=== PATIENT | female | born 1940 | race African-American/Black ===

== ENCOUNTER 2016-11-01 20:32 | Emergency (ER) | payer MEDICARE ==
[2016-11-01] MEDS ORDERED: NS 0.9% 1000 ML* 1,000 ML IV ONE (20:37)
[2016-11-01 21:00] LABS: Hematocrit 39 % (35-47); Hemoglobin 13.4 g/dl (12.0-16.0); Mean Corpuscular HGB Conc 34 g/dl (31-36); Mean Corpuscular Hemoglobin 28 pg (27-31); Mean Corpuscular Volume 84 fL (80-97); Mean Platelet Volume 8 um3 (7.4-10.4); Red Blood Count 4.71 10^6/ul (4.0-5.4); Red Cell Distribution Width 13 % (10.5-15); White Blood Count 10.1 10^3/ul (3.5-10.8)
[2016-11-01 21:12] LABS: Albumin 4.2 g/dL (3.2-5.2); BUN/Creatinine Ratio 22.5 (8-20); EGFR African American 79.3 (>60); EGFR Non-African American 61.7 (>60); Globulin 3.2 g/dL (2-4); Magnesium 2.2 mg/dL (1.9-2.7); Potassium 3.7 mmol/L (3.5-5.0); Total Bilirubin 0.3 mg/dL (0.2-1.0); Total Protein 7.4 g/dL (6.4-8.9)
[2016-11-01 21:14] LABS: Troponin I 0.01 ng/mL (<0.04)
--- NOTE | 2016-11-01 21:24 | ED ---
Johnson Garcia Matthew, scribed for Wilfredo Andrade MD on 11/01/16 at 2049 . Dizziness - HPI Summary HPI Summary: A 76 y/o female presents to the ED with dizziness since hours ago. She was gardening all day today and states she did not eat properly. She only had a smoothie, grapes, and a cup of coffee for breakfast and minimal water throughout the day. Associated symptoms include slow to respond and chest pain in the EMS described as tightness, which lasted for 2 minutes and was rated 9/ 10 in severity. The pain has since resolved. - History Of Current Complaint Stated Complaint: DIZZINESS Hx Obtained From: Patient Onset/Duration: Still Present Timing: Constant Severity Initially: Moderate Severity Currently: Moderate Character: Lightheaded, Dizzy Associated Signs And Symptoms: Positive: Chest Pain - described as tightness and has since resolved, Other: - slow to respond PMH/Surg Hx/FS Hx/Imm Hx Cardiovascular History: Reports: Hx Hypertension Respiratory History: Reports: Hx Asthma - Family History Family History: FHx of vascular disease and cancer - Social History Occupation: Retired Alcohol Use: None Hx Substance Use: No Substance Use Type: Reports: None Review of Systems Constitutional: Negative Eyes: Negative ENT: Negative Positive: Chest Pain - since resolved Respiratory: Negative Gastrointestinal: Negative Genitourinary: Negative Musculoskeletal: Negative Skin: Negative Neurological: Other - Dizziness; Slow to respond Psychological: Normal All Other Systems Reviewed And Are Negative: Yes Physical Exam Triage Information Reviewed: Yes Vital Signs On Initial Exam: Temp Pulse Resp BP Pulse Ox 98.7 F 78 16 158/72 92 11/01/16 20:54 11/01/16 20:54 11/01/16 20:54 11/01/16 20:54 11/01/16 20:54 Vital Signs Reviewed: Yes Appearance: Positive: Well-Appearing, No Pain Distress Skin: Positive: Warm, Dry Head/Face: Positive: Normal Head/Face Inspection Eyes: Positive: EOMI, RENALDO ENT: Positive: Pharynx normal, Other Neck: Positive: Supple Respiratory/Lung Sounds: Positive: Breath Sounds Present Cardiovascular: Positive: Normal, RRR Abdomen Description: Positive: Soft. Negative: CVA Tenderness (R), CVA Tenderness (L), Distended, Guarding Bowel Sounds: Positive: Present Musculoskeletal: Positive: Strength/ROM Intact Neurological: Positive: Sensory/Motor Intact Psychiatric: Positive: Affect/Mood Appropriate Diagnostics - Vital Signs Vital Signs Temp Pulse Resp BP Pulse Ox 11/01/16 20:54 98.7 F 78 16 158/72 92 11/01/16 20:52 98.7 F 81 16 158/72 92 - Laboratory Lab Results: Lab Results 11/01/16 11/01/16 11/01/16 Range/Units 20:45 20:45 20:45 WBC 10.1 (3.5-10.8) 10^3/ul RBC 4.71 (4.0-5.4) 10^6/ul Hgb 13.4 (12.0-16.0) g/dl Hct 39 (35-47) % MCV 84 (80-97) fL MCH 28 (27-31) pg MCHC 34 (31-36) g/dl RDW 13 (10.5-15) % Plt Count 221 (150-450) 10^3/ul MPV 8 (7.4-10.4) um3 Neut % (Auto) 62.1 (38-83) % Lymph % (Auto) 27.5 (25-47) % Gaston % (Auto) 6.7 (1-9) % Eos % (Auto) 3.1 (0-6) % Baso % (Auto) 0.6 (0-2) % Absolute Neuts (auto) 6.3 (1.5-7.7) 10^3/ul Absolute Lymphs (auto) 2.8 (1.0-4.8) 10^3/ul Absolute Monos (auto) 0.7 (0-0.8) 10^3/ul Absolute Eos (auto) 0.3 (0-0.6) 10^3/ul Absolute Basos (auto) 0.1 (0-0.2) 10^3/ul Absolute Nucleated RBC 0 10^3/ul Nucleated RBC % 0 Sodium 137 (133-145) mmol/L Potassium 3.7 (3.5-5.0) mmol/L Chloride 103 (101-111) mmol/L Carbon Dioxide 26 (22-32) mmol/L Anion Gap 8 (2-11) mmol/L BUN 20 (6-24) mg/dL Creatinine 0.89 (0.51-0.95) mg/dL Est GFR ( Amer) 79.3 (>60) Est GFR (Non-Af Amer) 61.7 (>60) BUN/Creatinine Ratio 22.5 H (8-20) Glucose 126 H (70-100) mg/dL Lactic Acid 1.0 (0.5-2.0) mmol/L Calcium 10.0 (8.6-10.3) mg/dL Magnesium 2.2 (1.9-2.7) mg/dL Total Bilirubin 0.30 (0.2-1.0) mg/dL AST 16 (13-39) U/L ALT 16 (7-52) U/L Alkaline Phosphatase 63 (34-104) U/L Troponin I 0.01 (<0.04) ng/mL Total Protein 7.4 (6.4-8.9) g/dL Albumin 4.2 (3.2-5.2) g/dL Globulin 3.2 (2-4) g/dL Albumin/Globulin Ratio 1.3 (1-3) TSH Pending Result Diagrams: 11/01/16 20:45 11/01/16 20:45 Lab Statement: Any lab studies that have been ordered have been reviewed, and results considered in the medical decision making process. - EKG 21:35 Cardiac Rate: NL - 70 bpm EKG Rhythm: Sinus Rhythm EKG Interpretation: Non-specific T abnormalities Dizzy Course/Dx - Course Assessment/Plan: A 76 y/o female presents to the ED with dizziness since hours ago. She was gardening all day today and states she did not eat properly. She only had minimal water throughout the day. Per EMS, the patient had chest pain in the EMS the lasted for 2 minutes and has since resolved. Labs were reviewed and troponin was 0.01. EKG shows sinus rhythm at 70 bpm. The patient will be discharged home with PCP follow-up. - Diagnoses Provider Diagnoses: Dehydration Discharge - Discharge Plan Condition: Improved Disposition: HOME Patient Education Materials: Dehydration (ED) Referrals: Benny Murphy MD [Primary Care Provider] - 3 Days Additional Instructions: Please follow-up with your primary care physician in 3 days. The documentation as recorded by the Johnson bruce Matthew accurately reflects the service I personally performed and the decisions made by , Wilfredo Andrade MD.
[2016-11-01 21:42] LABS: TSH (Thyroid Stimulating Horm) 1.19 mcIU/mL (0.34-5.60)
[2016-11-01 21:44] VITALS: BP 148/67
== END 2016-11-01 21:43 | disposition home or self-care (01) ==
LOC: ED 20:32
DX: E86.0 Dehydration (principal); R07.9 Chest pain, unspecified; R42 Dizziness and giddiness
CPT/HCPCS: 36415; 80053; 83605; 83735; 84443; 84484; 85025; 93005; 96360; 99282

== ENCOUNTER 2019-09-09 17:04 | Emergency (ER) | payer MEDICARE ==
[2019-09-09 17:26] VITALS: BP 172/76
--- NOTE | 2019-09-09 17:41 | UC ---
Eye Complaint HPI - HPI Summary HPI Summary: has had cold symptoms now has bilateral eye redness and itching some mucous drainage, no fevers or issues with vision - History of Current Complaint Chief Complaint: UCEye Stated Complaint: EYES COMPLAINT Time Seen by Provider: 09/09/19 17:39 Hx Obtained From: Patient Hx Last Menstrual Period: pst menopause ?: No Onset/Duration: Sudden Onset, Lasting Days - 2, Still Present Timing: Constant Pain Intensity: 0 Pain Scale Used: 0-10 Numeric Location of Injury: Conjunctiva Character: Foreign Body Sensation Aggravating Factor(s): Nothing Associated Signs And Symptoms: Positive: Drainage (Purulent). Negative: Vision Impairment Bilateral - Allergies/Home Medications Allergies/Adverse Reactions: Allergies Allergy/AdvReac Type Severity Reaction Status Date / Time No Known Allergies Allergy Verified 09/09/19 17:27 Home Medications: Home Medications Hydrochlorothiazide TAB* [Hydrodiuril TAB*] 25 mg PO DAILY 09/09/19 [History Confirmed 09/09/19] Losartan TAB* [Cozaar TAB*] 25 mg PO DAILY 09/09/19 [History Confirmed 09/09/19] diPHENhydraMINE PO* [Benadryl PO 25 MG TAB*] 25 mg 09/09/19 [History] PMH/Surg Hx/FS Hx/Imm Hx Previously Healthy: No Cardiovascular History: Hypertension - Surgical History Surgical History: Yes Surgery Procedure, Year, and Place: LEFT KNEE REPLACED - Family History Known Family History: Positive: None Family History: FHx of vascular disease and cancer - Social History Occupation: Retired Lives: With Family Alcohol Use: None Substance Use Type: None Smoking Status (MU): Never Smoked Tobacco Review of Systems All Other Systems Reviewed And Are Negative: Yes Constitutional: Positive: Negative, Fever Eyes: Positive: Drainage, Eye Redness ENT: Positive: Negative Respiratory: Positive: Negative Cardiovascular: Positive: Negative Gastrointestinal: Positive: Negative Genitourinary: Positive: Negative Motor: Positive: Negative Neurovascular: Positive: Negative Musculoskeletal: Positive: Negative Neurological/Mental Status: Positive: Negative Psychological: Positive: Negative Is Patient Immunocompromised?: No Physical Exam Triage Information Reviewed: Yes Appearance: Well-Appearing, No Pain Distress, Well-Nourished Vital Signs: Initial Vital Signs Temp 98.2 F 09/09/19 17:19 Pulse 69 09/09/19 17:19 Resp 20 09/09/19 17:19 BP 172/76 09/09/19 17:19 Pulse Ox 98 09/09/19 17:19 Vital Signs Reviewed: Yes Eye Exam: Normal Eyes: Positive: Conjunctiva Inflamed, Discharge ENT Exam: Normal ENT: Positive: Normal ENT inspection, Hearing grossly normal, Pharynx normal, TMs normal, Uvula midline. Negative: Nasal congestion, Tonsillar swelling, Trismus, Muffled voice, Hoarse voice, Dental tenderness, Sinus tenderness Neck exam: Normal Neck: Positive: Supple, Nontender, No Lymphadenopathy Respiratory Exam: Normal Respiratory: Positive: Chest non-tender, No respiratory distress, No accessory muscle use Cardiovascular Exam: Normal Cardiovascular: Positive: RRR, Pulses Normal Musculoskeletal Exam: Normal Musculoskeletal: Positive: Strength Intact, ROM Intact, No Edema Neurological Exam: Normal Neurological: Positive: Alert, Muscle Tone Normal Psychological Exam: Normal Skin Exam: Normal Eye Complaint Course/Dx - Course Course Of Treatment: discussed likely jacobson of this being viral conjuctivitis vs bacterial with patient patient wish to treat with eye drops----will rx polytrim - Differential Dx/Diagnosis Provider Diagnosis: Conjunctivitis, Hypertension Discharge ED - Sign-Out/Discharge Documenting (check all that apply): Patient Departure All imaging exams completed and their final reports reviewed: No Studies - Discharge Plan Condition: Stable Disposition: HOME Patient Education Materials: How to Use Eye Drops (ED), Hypertension (ED), Conjunctivitis (ED) Referrals: Mayra Louis MD [Primary Care Provider] - 2 Weeks (for bp recheck) Fermín Cardona MD [Medical Doctor] - If Needed - Billing Disposition and Condition Condition: STABLE Disposition: Home
[2019-09-09] MEDS ORDERED: Polymyx/Trimethoprim OPTH* 10 ML BTL BOTH EYES ONE (17:53)
== END 2019-09-09 18:10 | disposition home or self-care (01) ==
LOC: UCEAST 17:04
DX: H10.9 Unspecified conjunctivitis (principal); I10 Essential (primary) hypertension
CPT/HCPCS: 99212; G0463

== ENCOUNTER 2021-01-01 07:31 | Observation (INO) ==
[~2021-01-01 07:31] MED LIST: Buffered Lidocaine 1% SYRIN 1 ml INTRADERM ONE; Dexamethasone IV 4 MG/ML VIAL 1 ml VIAL ONE; Lactated Ringers 1000 ml BAG 1,000 ML IV SCH; Lidocaine 1% MPF 5 ML VIAL ONE; ROPIVACAINE 5 MG/ML 30 ML BTL (0.5%) ONE
[2021-01-01] MEDS ORDERED: Dexamethasone IV 4 MG/ML VIAL 1 ml VIAL ONE (07:48)
[2021-01-01] MEDS ORDERED: ceFAZolin 2 GM PREMIX 2 GM/50 ML BAG ONE (07:52)
[2021-01-01] MEDS ORDERED: Ropivacaine 5 MG/ML 20 ML VIAL 0.5% (100 MG) ONE (08:50)
[2021-01-01] MEDS ORDERED: Midazolam 5 mg/5 ml VIAL 1 mg/ml 5 ml VIAL (5 mg) ONE (09:17)
[2021-01-01] MEDS ORDERED: Phenylephrine IV 10 MG/ML 1 ml VIAL ONE (10:30)
[2021-01-01] MEDS ORDERED: fentaNYL 100 mcg/2 ml 50 MCG/ML VIAL ONE (10:31)
[2021-01-01] MEDS ORDERED: Ondansetron 4 mg VIAL 2 MG/ML 2 ml VIAL ONE (11:11)
[2021-01-01] MEDS ORDERED: Lidocaine 2% PF 5 ML VIAL ONE (11:28)
[2021-01-01] MEDS ORDERED: Propofol 10 MG/ML 20 ML BTL ONE ×2 (11:41→12:44)
[2021-01-01] MEDS ORDERED: diPHENhydraMINE IV 50 MG/ML 1 ml VIAL (BENADRYL) IV PRN (12:13)
[2021-01-01] MEDS ORDERED: Morphine 2 MG/ML SYRINGE IV PRN (12:13)
[2021-01-01] MEDS ORDERED: Lactulose 30 ml UDC PO PRN (12:13)
[2021-01-01] MEDS ORDERED: Magnesium Hydroxide LIQ 30 ML UDC PO PRN (12:13)
[2021-01-01] MEDS ORDERED: Ondansetron 4 mg VIAL 2 MG/ML 2 ml VIAL IV PRN (12:13)
[2021-01-01] MEDS ORDERED: Ondansetron ODT 4 mg TAB 4 MG TAB PO PRN (12:13)
[2021-01-01] MEDS ORDERED: diPHENhydraMINE 25 mg TAB PO PRN (12:13)
[2021-01-01] MEDS ORDERED: Albuterol HFA INHALER 8 gm MDI INH PRN (12:18)
[2021-01-01] MEDS ORDERED: Lactated Ringers 1000 ml BAG 1,000 ML IV SCH (13:00)
[2021-01-01] MEDS ORDERED: oxyCODONE/Acetamin 5/325 mg TAB ONE (13:37)
[2021-01-01] MEDS ORDERED: Mometasone 220 MCG MDI INH PRN (14:27)
[2021-01-01] MEDS: oxyCODONE/Acetamin 5/325 mg TAB PO PRN (16:13)
[2021-01-01] MEDS: ceFAZolin 1 GM ADVAN 1 GM in NS 0.9% 50 ML 50 ML IVPB SCH (18:13)
[2021-01-01] MEDS: Magnesium Hydroxide LIQ 30 ML UDC PO SCH (20:00)
[2021-01-01] MEDS: CMCS: Cyclosporine 0.05% OPHTH (NF) 0.4 ML VIAL BOTH EYES SCH (20:01)
[2021-01-02] MEDS: oxyCODONE/Acetamin 5/325 mg TAB PO PRN ×2 (01:34→07:40)
[2021-01-02] MEDS: ceFAZolin 1 GM ADVAN 1 GM in NS 0.9% 50 ML 50 ML IVPB SCH ×2 (01:34→10:08)
[2021-01-02 05:55] LABS: Hematocrit 34 % (35-47); Hemoglobin 11.7 g/dL (12.0-16.0); Mean Platelet Volume 7.9 fL (7.4-10.4); Platelet Count 194 10^3/uL (150-450)
[2021-01-02 06:25] LABS: Calcium 9.2 mg/dL (8.6-10.3); EGFR African American 91.4 (>60); EGFR Non-African American 75.5 (>60); Potassium 4.2 mmol/L (3.5-5.0)
[2021-01-02] MEDS: CMCS: Cyclosporine 0.05% OPHTH (NF) 0.4 ML VIAL BOTH EYES SCH (07:40)
[2021-01-02] MEDS: Magnesium Hydroxide LIQ 30 ML UDC PO SCH (07:45)
[2021-01-02] MEDS ORDERED: Vitamin THERAPEUTIC TAB PO SCH (09:00)
[2021-01-02 11:37] VITALS: BP 118/74
== END 2021-01-02 14:41 | disposition home or self-care (01) ==
LOC: SSU 07:31 → OR 07:31
PROVIDERS: ADMIT Orthopaedic Surgery Adult Reconstructive Orthopaedic Surgery; ATTEND Internal Medicine